=== PATIENT | female | born 1985 | race American Indian/Alaskan Native ===

== ENCOUNTER 2018-03-24 18:32 | Emergency (ER) | payer MEDICAID ==
[2018-03-24 19:37] VITALS: BP 139/76
[2018-03-24] MEDS ORDERED: ASPIRIN PO ONE (19:47)
[2018-03-24 21:41] LABS: Basophils % (Auto) 0.5 % (0.0-1.8); Eosinophils # (Auto) 0.1 K/mm3 (0.0-0.4); Hematocrit 39.5 % (30.3-42.9); Hemoglobin 12.8 gm/dl (10.1-14.3); Lymphocytes # (Auto) 2.1 K/mm3 (1.2-5.4); Mean Corpuscular HGB Conc 32 % (30-34); Mean Corpuscular Volume 79 fl (79-97); Monocytes # (Auto) 0.4 K/mm3 (0.0-0.8); Monocytes % (Auto) 5.4 % (0.0-7.3); Platelet Count 285 K/mm3 (140-440); Red Blood Count 5.02 M/mm3 (3.65-5.03)
[2018-03-24 21:51] LABS: INR 0.84 (0.87-1.13)
[2018-03-24 21:52] LABS: Partial Thromboplastin Time 33.4 Sec. (24.2-36.6)
[2018-03-24 22:04] LABS: HCG Qualitative,Urine Negative (Negative)
[2018-03-24 22:08] LABS: Bacteria,Urine 1+ /HPF (Negative); Bilirubin,Urine NEG (Negative); Blood,Urine NEG (Negative); Color,Urine Yellow (Yellow); Protein,Urine <15 mg/dL mg/dL (Negative); Urobilinogen,Urine < 2.0 mg/dL (<2.0)
[2018-03-24 22:11] LABS: BUN/Creatinine Ratio 12; Blood Urea Nitrogen 6 mg/dL (7-17); Calcium 9.6 mg/dL (8.4-10.2); Hemolysis Index 8
== END 2018-03-24 21:50 | disposition left against medical advice (07) ==
LOC: ED 18:32
DX: R07.89 Other chest pain (principal); Z53.21 Procedure and treatment not carried out due to patient leaving prior to being seen by health care provider
CPT/HCPCS: 36415; 80048; 81001; 81025; 83880; 84484; 85025; 85610; 85730; 93005; 93010